=== PATIENT | female | born 1960 | race Caucasian/White ===

== ENCOUNTER → 2016-12-10 | Outpatient (CLI) | payer BC ==
--- NOTE | 2016-12-10 16:23 | REP ---
Chest x-ray: Two views: History: Cough and shortness of breath. Findings: The lungs are slightly hyperinflated but clear. Pleural angles are sharp. Heart is not enlarged. Pulmonary vasculature is not increased. There are mild degenerative changes in the thoracic spine. Impression: No active disease. Signed by Hosea Spears MD 12/10/2016 04:25 P
== END ==
LOC: M LRY 15:26
PROVIDERS: ATTEND Nurse Practitioner Family
DX: R05 Cough (principal)

== ENCOUNTER → 2017-07-09 | Outpatient (CLI) | payer BC ==
[2017-07-09 12:10] LABS: ALBUMIN 3.5 GM/DL (3.2-5.2); ALBUMIN/GLOBULIN RATIO 1.25 (1.00-1.93); ALKALINE PHOSPHATASE 53 U/L (45-117); ALT/SGPT 18 U/L (12-78); ANION GAP 5 MEQ/L (8-16); AST/SGOT 10 U/L (15-37); BILIRUBIN,TOTAL 0.7 MG/DL (0.2-1.0); BLOOD UREA NITROGEN 14 MG/DL (7-18); CALCIUM LEVEL 9.2 MG/DL (8.5-10.1); CARBON DIOXIDE LEVEL 32 MEQ/L (21-32); CHLORIDE LEVEL 108 MEQ/L (98-107); CHOLESTEROL LEVEL 141 MG/DL (<200); CREATININE FOR GFR 0.72 MG/DL (0.55-1.02); GLOMERULAR FILTRATION RATE > 60.0 (>51); GLUCOSE, FASTING 85 MG/DL (70-105); POTASSIUM SERUM 4.5 MEQ/L (3.5-5.1); SODIUM LEVEL 145 MEQ/L (136-145); T UPTAKE 37 % (30-39); THYROXINE (T4) 9.4 UG/DL (4.5-12.0); TOTAL PROTEIN 6.3 GM/DL (6.4-8.2); TRIGLYCERIDES LEVEL 102 MG/DL (<150)
== END ==
LOC: M LRY 09:10
PROVIDERS: ATTEND Nurse Practitioner Family
DX: E78.5 Hyperlipidemia, unspecified (principal); E03.9 Hypothyroidism, unspecified

== ENCOUNTER 2023-04-28 08:16 | Day surgery (SDC) | payer BC ==
[~2023-04-28] VITALS: Ht 165.1 cm; Wt 62.0 kg
[~2023-04-28 08:16] MED LIST: ALBU8.5H INH; ATOR1TAB21 PO; B-12100010 PO; BAYE81TA10 PO; COQ150CH PO; LEVO137T2 PO; LIDOCAINE 2% 100MG/5ML SDV (FOR ANES.) As Ordered ONE; LISI20TA33 PO; NIAC500C5 PO; NS 1,000 ML IV ONE; propofoL 200 MG/20 ML VIAL As Ordered ONE
[2023-04-28] MEDS ORDERED: propofoL 200 MG/20 ML VIAL As Ordered ONE (10:19)
[2023-04-28 10:30] VITALS: TEMP 97.2
[2023-04-28 10:52] VITALS: BP 121/60; O2SAT 96
== END 2023-04-28 10:57 | disposition home or self-care (01) ==
LOC: M OPP 08:16
PROVIDERS: ATTEND Internal Medicine Gastroenterology
DX: K63.5 Polyp of colon (principal); K64.4 Residual hemorrhoidal skin tags; K64.8 Other hemorrhoids; K57.30 Diverticulosis of large intestine without perforation or abscess without bleeding; R19.5 Other fecal abnormalities; F17.200 Nicotine dependence, unspecified, uncomplicated; Z79.02 Long term (current) use of antithrombotics/antiplatelets; Z79.82 Long term (current) use of aspirin; Z79.51 Long term (current) use of inhaled steroids; Z79.890 Hormone replacement therapy; Z79.899 Other long term (current) drug therapy